=== PATIENT | male | born 1950 | race Caucasian/White ===

== ENCOUNTER 2023-12-17 06:27 | Day surgery (SDC) | payer MEDICARE, OTHER, SELFPAY ==
--- NOTE | 2023-12-10 13:19 | PTCARENOTE ---
Patients 11/30 EKG abnormal, reviewed by Dr. Leiva- no additional interventions required
[2023-12-11 09:32] VITALS: BMI 23.1
[2023-12-17] VITALS (8 sets, daily range): BP systolic 134–170; BP diastolic 60–85; BMI 23.1
[2023-12-17] MEDS: NORMOSOL-R 1000 IV (08:09)
[2023-12-17] MEDS: CYSVIEW KIT 100 MG INTRAVES (08:26)
[2023-12-17] MEDS: TYLENOL 1000 MG PO (09:57)
== END 2023-12-17 13:15 | disposition home or self-care (01) ==
LOC: SDS 06:27
PROVIDERS: ATTENDING PHYSICIAN Specialist
DX: Z85.51 Personal history of malignant neoplasm of bladder (principal)
CPT/HCPCS: 52240; 88305; 74420; 76000; A9589

== ENCOUNTER → 2024-04-22 11:36 | Outpatient (REF) | payer MEDICARE, OTHER, SELFPAY | LOC: CLAB 11:36 | PROVIDERS: ATTENDING PHYSICIAN Specialist | DX: C67.9 Malignant neoplasm of bladder, unspecified (principal) | CPT/HCPCS: 88112 ==

== ENCOUNTER → 2024-08-24 16:22 | Outpatient (REF) | payer MEDICARE, OTHER, SELFPAY | LOC: CLAB 16:22 | PROVIDERS: ATTENDING PHYSICIAN Specialist | DX: C67.9 Malignant neoplasm of bladder, unspecified (principal) | CPT/HCPCS: 88112 ==

== ENCOUNTER → 2024-12-30 10:14 | Outpatient (REF) | payer MEDICARE, OTHER, SELFPAY | LOC: CLAB 10:14 | PROVIDERS: ATTENDING PHYSICIAN Specialist | DX: C67.9 Malignant neoplasm of bladder, unspecified (principal) | CPT/HCPCS: 88112 ==

== ENCOUNTER 2025-01-05 06:23 | Day surgery (SDC) | payer MEDICARE, OTHER, SELFPAY ==
[2025-01-05] VITALS (14 sets, daily range): BP systolic 113–174; BP diastolic 61–94; BMI 23.9
[2025-01-05] MEDS: CYSVIEW KIT 100 MG INTRAVES (10:06)
[2025-01-05] MEDS: NORMOSOL-R/PLASMALYTE-A 1000 IV (10:28)
--- NOTE | 2025-01-05 15:16 | W.PN.ADMIT ---
Progress Note - Admit
Progress Note - Admit
pt s/p TURBT/TURP
admit for hematuria requiring CBI
[2025-01-05 16:09] LABS: Hematocrit 39.2 % (39.0-52.0); Hemoglobin 13.4 g/dL (13.0-18.0); Mean Corp Hgb Conc. 34.2 g/dL (33.0-37.0); Mean Corpuscular Hgb 32.1 pg (27.0-31.0); Mean Platelet Volume 10.5 fL (7.4-10.4); Platelet Count 144 10^3/uL (130-400); Red Blood Cell Count 4.17 10^6/uL (4.70-6.10); Red Cell Dist. Width 13.2 % (11.5-14.5)
[2025-01-05] MEDS: APRESOLINE 100 MG PO ×2 (16:14→22:13)
[2025-01-05 16:22] LABS: Blood Urea Nitrogen 18 mg/dl (9-20); Calcium 8.2 mg/dl (8.4-10.2); Carbon Dioxide 24 mmol/L (22-30); Chloride 108 mmol/L (98-107); Estimated Creatinine Clearance 65 ml/min; Glucose 100 mg/dl (70-99); Potassium 4.3 mmol/L (3.5-5.1); Sodium 137 mmol/L (135-145); eGFR > 60.00
[2025-01-05] MEDS: NSS 1000 IV (17:03)
[2025-01-05] MEDS: SYMBICORT 160/4.5 MCG INHALER 2 PUFF INH (19:28)
[2025-01-05] MEDS: CARDURA 4 MG PO (19:56)
[2025-01-05] MEDS: MACROBID 100 MG PO (19:56)
[2025-01-05] MEDS: COREG 25 MG PO (19:56)
[2025-01-05] MEDS: OCUVITE SOFTGEL 1 CAP PO (19:57)
[2025-01-05] MEDS: COLACE PO (20:01)
--- NOTE | 2025-01-05 20:12 | PTCARENOTE ---
Manjarrez traction released at 2000 per MD order. CBI running light punch, no clots.
[2025-01-05] MEDS: COZAAR 100 MG PO (22:13)
[2025-01-05] MEDS: LIPITOR 40 MG PO (22:13)
[2025-01-05] MEDS: MELATONIN 5 MG PO (22:13)
[2025-01-05] MEDS: PROCARDIA XL (EXTENDED RELEASE) 30 MG PO (22:13)
[2025-01-06] MEDS: VALIUM INJECTION 2.5 MG IV (00:22)
[2025-01-06 03:00] VITALS: BP 116/67
--- NOTE | 2025-01-06 03:30 | PTCARENOTE ---
CBI went from light punch --> pale yellow. Pt denies bladder pressure. Reports intermittent spasms, medicated w/PRN valium (refer to MAR), verbalized relief.
--- NOTE | 2025-01-06 04:16 | PTCARENOTE ---
Pt c/o sharp 5/10 pain to L lateral dorsal foot. Foot assessed, + pedal pulse, + sensation, good cap refill, normal color and temperature. Offer pain medication, pt declined, would like to see if it resolves. David stocking left rolled back.
Bilateral heels floated on pillow. CIGARETTE CATCHER covering house contacted, ok to place ice for comfort. Offered to remove David stocking and apply ice. Pt refusing, stating it feels better now.
[2025-01-06] MEDS: NSS 1000 IV (04:34)
[2025-01-06 06:36] LABS: Hematocrit 40.8 % (39.0-52.0); Mean Corp Hgb Conc. 34.3 g/dL (33.0-37.0); Mean Corpuscular Hgb 32.2 pg (27.0-31.0); Mean Corpuscular Volume 93.8 fL (80.0-94.0); Mean Platelet Volume 10.4 fL (7.4-10.4); Platelet Count 142 10^3/uL (130-400); Red Blood Cell Count 4.35 10^6/uL (4.70-6.10); Red Cell Dist. Width 12.9 % (11.5-14.5); White Blood Cell Count 13.5 10^3/uL (4.8-10.8)
[2025-01-06 06:56] LABS: Blood Urea Nitrogen 15 mg/dl (9-20); Calcium 8.3 mg/dl (8.4-10.2); Carbon Dioxide 24 mmol/L (22-30); Chloride 108 mmol/L (98-107); Estimated Creatinine Clearance 73 ml/min; Glucose 120 mg/dl (70-99); Potassium 3.8 mmol/L (3.5-5.1); Sodium 138 mmol/L (135-145); eGFR > 60.00
[2025-01-06 07:00] VITALS: BP 113/71
[2025-01-06] MEDS: SYMBICORT 160/4.5 MCG INHALER 2 PUFF INH ×2 (07:27→19:45)
[2025-01-06] MEDS: ZINC 50 MG PO (07:44)
[2025-01-06] MEDS: CARDURA 4 MG PO ×2 (07:45→20:32)
[2025-01-06] MEDS: B COMPLEX w/VITAMIN C 1 CAPLET PO (07:45)
[2025-01-06] MEDS: VISBIOME 1 CAP PO (07:45)
[2025-01-06] MEDS: APRESOLINE 100 MG PO ×3 (07:45→22:02)
[2025-01-06] MEDS: COREG 25 MG PO ×2 (07:45→20:32)
[2025-01-06] MEDS: VITAMIN C 500 MG PO (07:45)
[2025-01-06] MEDS: VITAMIN D3 (cholecalciferol) 25 MCG PO (07:45)
[2025-01-06] MEDS: ULORIC 40 MG PO (07:45)
[2025-01-06] MEDS: COLACE 100 MG PO ×2 (07:46→20:31)
[2025-01-06] MEDS: ATARAX 10 MG PO (07:46)
[2025-01-06] MEDS: OCUVITE SOFTGEL 1 CAP PO ×2 (07:46→20:31)
[2025-01-06] MEDS: PROSCAR 5 MG PO (07:46)
[2025-01-06] MEDS: MACROBID 100 MG PO ×2 (07:46→20:31)
[2025-01-06] MEDS: LASIX 40 MG PO (07:56)
--- NOTE | 2025-01-06 08:51 | W.PN.URO.CBU ---
Today's Communication / Plan
-
routine post TURP care
Assessment / Plan
-
s/p TURBT and TURP
Uoob to chair
regular diet
wean cbi as tolerated- when urine clear off cbi- home with with akers
Diagnosis
-
Date of Service: January 06, 2025
-
Patient Diagnosis:
bph and bladder cancer
Post Op Day:
TURBT and TURP 01/05
Subjective
-
pt stable
urine became bloody overnight- now clear on moderate drip
labs stable
Objective
-
Vital Signs
Temp Pulse Resp BP Pulse Ox
98.1 F 75 16 113/71 97
01/06/25 07:00 01/06/25 07:30 01/06/25 07:30 01/06/25 07:45 01/06/25 07:30
Intake and Output
01/05/25 01/06/25 01/07/25
06:59 06:59 06:59
Intake Total 1780 / 1780
Output Total 1300 / 1300
Balance 480 / 480
Intake:
Oral fluids 720 / 720
IV fluids (Total) 1060 / 1060
normasol 100 / 100
Output:
True Urine Output from CBI 1300 / 1300
Laboratory Results
01/06/25 05:36
01/06/25 05:36
Review of Systems
-
Constitutional: Fatigue
Respiratory: No Symptoms
Cardiac: No Symptoms
Abdomen/GI: No Symptoms
Physical Exam
-
General - no acute distress
Abdomen - soft, non-tender
Genitalia - normal- akers in place
--- NOTE | 2025-01-06 10:00 | CM ---
CM following re: discharge planning.
Reviewed pt's chart, met with pt.
Pt is a 74 year old male, admitted with primary dx of POD#1 s/p TURBT and TURP. Continue supportive care. Per Urology, pt will be discharged with Manjarrez.
Pt reports he lives with spouse 2SH, 3 steps to enter, has 2 supportive children. 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 No DME, VN or SNF history.
Pt is aware he will be discharged home with Manjarrez and pt stated he had Manjarrez in the past and he will not need after care VN services for Manjarrez care.
PCP: Dr. Lopez
Pharmacy: [facility]
D/C plan: home with no after care VN needs. Spouse to transport at discharge.
CM will follow with discharge plan updates as needed.
[2025-01-06 11:00] VITALS: BP 117/58
[2025-01-06 15:00] VITALS: BP 166/70
[2025-01-06] MEDS: MELATONIN 5 MG PO (22:00)
[2025-01-06] MEDS: LIPITOR 40 MG PO (22:00)
[2025-01-06] MEDS: PROCARDIA XL (EXTENDED RELEASE) 30 MG PO (22:01)
[2025-01-06] MEDS: COZAAR 100 MG PO (22:01)
[2025-01-06 23:00] VITALS: BP 120/67
--- NOTE | 2025-01-06 23:40 | PTCARENOTE ---
Pt urine light pink. Ordered to stop CBI if urine clear at 0000. Urology merchandising execution manager notified that urine was still light pink. Dr. Lindsey ordered to run CBI light untill AM.
[2025-01-07] MEDS: SYMBICORT 160/4.5 MCG INHALER 2 PUFF INH (07:48)
[2025-01-07 08:00] VITALS: BP 139/79
--- NOTE | 2025-01-07 08:50 | W.PN.URO.CBU ---
Today's Communication / Plan
-
D/c home w/ catheter to drainage bag
Manjarrez and leg bag teaching
F/U w/ in office Mon 01/09 AM (8:45) for voiding trial
Assessment / Plan
-
s/p TURBT and TURP
CBI discontinued - urine remains len-tinged and clear after ambulation and BM.
Diagnosis
-
Date of Service: January 07, 2025
-
Patient Diagnosis:
bph and bladder cancer
Post Op Day:
TURBT and TURP 01/05
Subjective
-
Having breakfast.
BM x1, passing flatus.
Urine len in tubing - CBI discontinued this AM.
Objective
-
Vital Signs
Temp Pulse Resp BP Pulse Ox
98.5 F 57 18 139/79 96
01/07/25 08:00 01/07/25 08:00 01/07/25 08:00 01/07/25 08:00 01/07/25 08:00
Intake and Output
01/06/25 01/07/25 01/08/25
06:59 06:59 06:59
Intake Total 1780 / 1780 600 / 600
Output Total 1300 / 1300 2350 / 2350
Balance 480 / 480 -1750 / -1750
Intake:
Oral fluids 720 / 720 600 / 600
IV fluids (Total) 1060 / 1060
normasol 100 / 100
Output:
True Urine Output from CBI 1300 / 1300 2350 / 2350
Other:
Number of approximated MODERATE 1
amounts of urine
Laboratory Results
01/06/25 05:36
01/06/25 05:36
Physical Exam
-
General - well developed, well nourished, no acute distress
Abdomen - soft, non-tender, non-distended
Genitalia - normal, 3-way catheter w/ len-tinged UOP, no clots
Skin - warm & dry with no rash
Neuro - AOx3, no motor deficits
Extremities - no clubbing, no cyanosis, no edema
[2025-01-07] MEDS: B COMPLEX w/VITAMIN C 1 CAPLET PO (09:38)
[2025-01-07] MEDS: APRESOLINE 100 MG PO (09:38)
[2025-01-07] MEDS: COLACE 100 MG PO (09:39)
[2025-01-07] MEDS: ULORIC 40 MG PO (09:39)
[2025-01-07] MEDS: ATARAX 10 MG PO (09:39)
[2025-01-07] MEDS: ZINC 50 MG PO (09:39)
[2025-01-07] MEDS: VITAMIN D3 (cholecalciferol) 25 MCG PO (09:39)
[2025-01-07] MEDS: CARDURA 4 MG PO (09:39)
[2025-01-07] MEDS: MACROBID 100 MG PO (09:39)
[2025-01-07] MEDS: OCUVITE SOFTGEL 1 CAP PO (09:39)
[2025-01-07] MEDS: COREG 25 MG PO (09:40)
[2025-01-07] MEDS: VISBIOME 1 CAP PO (09:40)
[2025-01-07] MEDS: VITAMIN C 500 MG PO (09:40)
[2025-01-07] MEDS: PROSCAR 5 MG PO (09:40)
--- NOTE | 2025-01-07 09:51 | W.DS.TRANS ---
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
-
Discharge Instructions:
Sleep Apnea Risk Intermediate
Discharge Diagnosis/Procedures you had a transurethral resection of a bladder
tumor and of the prostate
Diet No restrictions
Activity No strenuous activity
Additional Activity no lifting more than 10lbs or strenuous activity
for one week
Driving Restrictions No driving for 1 week
Bathing Restrictions OK to Shower
Instructions:
Stand-Alone Forms:
Changes to Home Medications: No
Discharge Medications:
DC Medications w/original date entered in [facility] [employer]
Bifidobacterium infantis 10.5 mg (10 million cell) chewable tablet (Align (B.infantis)) 10.5 mg PO DAILY ##0 03/19/23
Jerome Joint Formula 1 tab PO DAILY 03/19/23
Smartee Pants Master 2 gum PO DAILY 03/19/23
Super Beets 1 gum PO DAILY 03/19/23
acalabrutinib maleate 100 mg tablet (Calquence (acalabrutinib maleate)) 100 mg PO BID 03/19/23
ascorbic acid (vitamin C) 500 mg tablet (Vitamin C) 500 mg PO DAILY Supplement 03/19/23
aspirin 81 mg tablet,delayed release 81 mg PO DAILY Blood Clot Prevention/Tx 03/19/23
atorvastatin 40 mg tablet 40 mg PO HS High Cholesterol 03/19/23
cholecalciferol (vitamin D3) 25 mcg (1,000 unit) capsule (Vitamin D3) 25 mcg PO DAILY High Cholesterol 03/19/23
coQ10 (ubiquinol) 100 mg capsule 100 mg PO QPM 03/19/23
febuxostat 40 mg tablet 40 mg PO DAILY 03/19/23
finasteride 5 mg tablet 5 mg PO DAILY Urinary Issue 03/19/23
loperamide 2 mg tablet (Imodium A-D) 1 mg PO PRN PRN diarrhea 03/19/23
losartan 100 mg tablet 100 mg PO HS Blood Pressure 03/19/23
vit C 250 mg-vit E 90 mg-zinc 40 mg-copper 1 [id number] capsule (PreserVision AREDS-2) 1 tab PO BID 03/19/23
vitamin B complex 1 tab PO DAILY Supplement 03/19/23
tramadol 50 mg tablet 50 mg PO Q8H PRN Pain #30 tabs 03/26/23
doxazosin 4 mg tablet 4 mg PO BID 05/07/23
copper 2 mg tablet 2 mg PO DAILY 12/09/23
zinc 15 mg PO DAILY 12/09/23
budesonide-formoterol HFA 160 mcg-4.5 mcg/actuation aerosol inhaler (Symbicort) 2 inh inhalation PRN PRN SOB 01/02/25
carvedilol 25 mg tablet (Coreg) 25 mg PO BID 01/02/25
furosemide 40 mg tablet 40 mg PO MOWEFR 01/02/25
hydralazine 100 mg tablet 100 mg PO TID 01/02/25
hydroxyzine HCl 10 mg tablet 10 mg PO DAILY 01/02/25
melatonin 5 mg tablet 5 mg PO HS 01/02/25
nifedipine 30 mg tablet,extended release 30 mg PO HS 01/02/25
ipratropium bromide 21 mcg (0.03 %) nasal spray 2 spray intranasal PRN PRN rhinitis 01/05/25
nitrofurantoin monohydrate/macrocrystals 100 mg capsule (Macrobid) 100 mg PO Q12H 5 days #10 caps 01/06/25
Home Medication Changes
Pending Results: Yes
Additional Pending Results:
surgical pathology
--- NOTE | 2025-01-07 10:46 | CM ---
CM met with pt bedside
Noted dc order
Plan for home with akers
Pt declined VN noted noting akers hx and he is well versed with care at home
He plans to follow up for removal of akers next week
Discharge Disposition- home no needs, spouse
[2025-01-07 10:50] VITALS: BP 130/60
--- NOTE | 2025-01-07 12:45 | PTCARENOTE ---
At discharge Pt and his given Leg Bag akers teaching. Pt able to return demonstrate changing akers from gravity to a leg bag w/o difficulty.
== END 2025-01-07 12:40 | disposition home or self-care (01) ==
LOC: SDS 06:23
PROVIDERS: ATTENDING PHYSICIAN Specialist
DX: C67.9 Malignant neoplasm of bladder, unspecified (principal); N40.0 Benign prostatic hyperplasia without lower urinary tract symptoms
CPT/HCPCS: 52601; 52234; C9738; 88305; 88307; 74018; 76000; 80048; 85027; 94640; A9589; C1758

== ENCOUNTER → 2025-01-25 09:17 | Outpatient (REF) | payer MEDICARE, OTHER, SELFPAY | LOC: RAD 09:17 | PROVIDERS: ATTENDING PHYSICIAN Specialist; FAMILY PHYSICIAN Internal Medicine | DX: C67.9 Malignant neoplasm of bladder, unspecified (principal) | CPT/HCPCS: 74178; Q9967 ==

== ENCOUNTER → 2025-06-05 10:44 | Outpatient (REF) | payer MEDICARE, OTHER, SELFPAY | LOC: CLAB 10:44 | PROVIDERS: ATTENDING PHYSICIAN Specialist | DX: C67.9 Malignant neoplasm of bladder, unspecified (principal) | CPT/HCPCS: 88112 ==